=== PATIENT | male | born 1990 | race American Indian/Alaskan Native ===

== ENCOUNTER 2020-11-22 02:55 | Emergency (ER) | payer SELFPAY ==
[2020-11-22 03:15] VITALS: BP 112/74
--- NOTE | 2020-11-22 03:57 | XRay Report ---
Right rib series 3 views INDICATION: Right rib pain following injury IMPRESSION: No rib fracture identified. Signer Name: Saeed Rudd MD Signed: 11/22/2020 3:53 AM Workstation Name: [id number]
--- NOTE | 2020-11-22 03:58 | XRay Report ---
Left shoulder 3 views INDICATION: Left shoulder pain following injury IMPRESSION: No fracture or subluxation identified. Signer Name: Saeed Rudd MD Signed: 11/22/2020 3:54 AM Workstation Name: [id number]
--- NOTE | 2020-11-22 03:59 | XRay Report ---
Thoracic spine 2 views INDICATION: Back pain following injury IMPRESSION: No evidence of fracture or subluxation. Signer Name: Saeed Rudd MD Signed: 11/22/2020 3:54 AM Workstation Name: [id number]
[2020-11-22] MEDS ORDERED: ACETAMINOPHEN 325 MG TAB PO ONE (04:42)
[2020-11-22] MEDS ORDERED: CYCLOBENZAPRINE 10 MG TAB PO ONE (04:42)
[2020-11-22] MEDS ORDERED: IBUPROFEN 600 MG TAB PO ONE (04:42)
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
== END 2020-11-22 05:28 | disposition home or self-care (01) ==
LOC: ED 02:55
DX: S29.012A Strain of muscle and tendon of back wall of thorax, initial encounter (principal); S20.211A Contusion of right front wall of thorax, initial encounter; M62.830 Muscle spasm of back; V89.2XXA Person injured in unspecified motor-vehicle accident, traffic, initial encounter; Y93.89 Activity, other specified; Y92.488 Other paved roadways as the place of occurrence of the external cause; Y99.8 Other external cause status
CPT/HCPCS: 72070; 99283